=== PATIENT | male | born 1955 | race Caucasian/White ===

== ENCOUNTER 2018-10-30 08:37 | Day surgery (SDC) | payer MEDICARE, OTHER ==
[2018-10-30] VITALS (8 sets, daily range): BP systolic 116–148; BP diastolic 67–92
[~2018-10-30] VITALS: Ht 182.9 cm; Wt 87.6 kg
[2018-10-30] MEDS ORDERED: LIDOcaine 1% (10mg/ml) 2ml vial ONE (09:47)
[2018-10-30] MEDS ORDERED: fentaNYL/PF 50MCG/1 ML 2ML syringe IV ONE (10:25)
[2018-10-30] MEDS ORDERED: MIDAZolam 5mg/ml 2ml vial IV ONE (10:25)
[2018-10-30] MEDS ORDERED: LIDOcaine/PRILOcaine 5gm cream TP ONE (10:30)
[2018-10-30] MEDS ORDERED: LIDOcaine 1% 30ml preserv. free vial IJ STA (10:37)
[2018-10-30] MEDS ORDERED: NO HOME MEDS (13:53)
== END 2018-10-30 11:40 | disposition home or self-care (01) ==
LOC: SSTAY O 08:37
PROVIDERS: ATTEND Radiology Vascular & Interventional Radiology
DX: C77.3 Secondary and unspecified malignant neoplasm of axilla and upper limb lymph nodes (principal); C43.62 Malignant melanoma of left upper limb, including shoulder; F12.90 Cannabis use, unspecified, uncomplicated; Z72.89 Other problems related to lifestyle; Z87.891 Personal history of nicotine dependence; Z79.899 Other long term (current) drug therapy; Z98.890 Other specified postprocedural states
CPT/HCPCS: 38505; 76942; J2001; J2250; J3010; 88184; 88185; 99152; 99153